=== PATIENT | female | born 1975 | race Caucasian/White ===

== ENCOUNTER → 2018-10-19 13:23 | Outpatient (CLI) | payer OTHER, MEDICAID, SELFPAY ==
[2018-10-19 14:37] LABS: Add Manual Diff / Slide Review NO; Basophils Percent Auto 0.6 % (0-2); Hematocrit 40.7 % (36-46); Hemoglobin 13.8 g/dL (12.0-16.0); Lymphocytes Percent Auto 35.6 % (25-40); Mean Corpuscular HGB Conc 33.9 % (30-36); Mean Corpuscular Hemoglobin 31.7 PG (26-34); Mean Corpuscular Volume 93.4 fL (80-100); Monocytes Percent Auto 8.5 % (3-14); Neutrophils Absolute Auto 3200 /uL (3000-5900); Neutrophils Percent Auto 53.3 % (50-75); Platelet Count 323 X10^3/uL (150-400); Red Blood Cell Count 4.36 X10^6/uL (4.0-5.2); Red Cell Distribution Width 13.8 % (11.6-14.8)
[2018-10-19 15:15] LABS: Alanine Aminotransferase 52 IU/L (9-52); Albumin 4.6 g/dL (3.5-5.0); Albumin Globulin Ratio 1.4 (1.0-2.8); Alkaline Phosphatase 56 U/L (38-126); Aspartate Aminotransferase 50 IU/L (14-36); BUN Creatinine Ratio 16.7 (6-22); Bilirubin Total 0.9 mg/dL (0.2-1.3); Blood Urea Nitrogen 15 mg/dL (7-17); Calcium 9.6 mg/dL (8.4-10.2); Carbon Dioxide 23 mmol/L (22-32); Chloride 106 mmol/L (98-107); Cholesterol 245 mg/dL (140-199); Estimated Glomerular Filt Rate > 60.0 mL/min (>60); Globulin 3.3 g/dL (1.7-4.1); Glucose 75 mg/dL (70-100); HDL Cholesterol 80 mg/dL (40-60); LDL Cholesterol Calculated 149 mg/dL (<100); Sodium 141 mmol/L (137-145); Total Protein 7.9 g/dL (6.3-8.2); Triglycerides 78 mg/dL (35-150)
[2018-10-19 15:18] LABS: HEMOLYSIS 57 (0-50); Potassium 5.5 mmol/L (3.4-5.1)
[2018-10-19 15:45] LABS: TSH w/ Reflex to FT4 0.94 uIU/mL (0.47-4.68)
[2018-10-22 08:59] LABS: HSV 2 IGG AB < 0.90 index (< 0.90)
== END ==
PROVIDERS: PCP Internal Medicine; Visit Provider Internal Medicine
DX: F41.9 Anxiety disorder, unspecified (principal); R39.15 Urgency of urination; Z97.5 Presence of (intrauterine) contraceptive device; N94.9 Unspecified condition associated with female genital organs and menstrual cycle
CPT/HCPCS: 36415; 80053; 80061; 84443; 85025; 86695; 86696

== ENCOUNTER → 2018-11-04 12:04 | Outpatient (CLI) | payer OTHER, MEDICAID, SELFPAY ==
[2018-11-04 12:53] LABS: HEMOLYSIS < 15 (0-50); Iron 62 ug/dL (37-170)
[2018-11-04 12:55] LABS: Alanine Aminotransferase 31 IU/L (9-52); Albumin 4.5 g/dL (3.5-5.0); Albumin Globulin Ratio 1.3 (1.0-2.8); Alkaline Phosphatase 68 U/L (38-126); Aspartate Aminotransferase 35 IU/L (14-36); Bilirubin Total 0.3 mg/dL (0.2-1.3); Bilirubin Unconjugated 0.2 mg/dL (0.0-1.1); Globulin 3.6 g/dL (1.7-4.1); HEMOLYSIS 17 (0-50); Total Protein 8.1 g/dL (6.3-8.2)
[2018-11-04 13:03] LABS: Percent Iron Saturation 19 % (15-50); Total Iron Binding Capacity 331 ug/dL (265-497); Transferrin 266 mg/dL (206-381)
[2018-11-04 16:19] LABS: Hepatitis B Surface Antigen NEGATIVE s/c (NEGATIVE)
[2018-11-04 16:38] LABS: Hep C Virus Ab w/Reflex Quant NEGATIVE s/c (NEGATIVE)
[2018-11-07 21:10] LABS: Ceruloplasmin 36 mg/dL (18-53)
[2018-11-07 22:55] LABS: Albumin 4.1 g/dL (3.8-4.8); Alpha 1 Globulin 0.4 g/dL (0.2-0.3); Alpha 2 Globulin 0.9 g/dL (0.5-0.9); Beta 1 Globulin 0.4 g/dL (0.4-0.6); Gamma Globulin 1.4 g/dL (0.8-1.7); Protein, Total 7.6 g/dL (6.1-8.1)
[2018-11-08 08:25] LABS: ANA Screen NEGATIVE (Negative); DNA Antibody Crithidia IFA NEGATIVE (Negative); Rheumatoid Factor <14 IU/mL; Sjogren Antiboday SS-A <1.0 NEG AI (<1.0 NEGATIVE); Sjogren Antiboday SS-B <1.0 NEG AI (<1.0 NEGATIVE); Sm Antibody <1.0 NEG AI (<1.0 NEGATIVE); Sm/RNP Antibody <1.0 NEG AI (<1.0 NEGATIVE)
[2018-11-08 17:57] LABS: Hepatitis B Core Antibody Nonreactive (Nonreactive)
== END ==
PROVIDERS: PCP Internal Medicine; Visit Provider Internal Medicine
DX: R94.5 Abnormal results of liver function studies (principal)
CPT/HCPCS: 36415; 80076; 82390; 83540; 83550; 84155; 84165; 86038; 86430; 86704; 86803; 87340

== ENCOUNTER → 2018-11-24 12:16 | Outpatient (CLI) | payer OTHER, MEDICAID, SELFPAY ==
--- NOTE | 2018-11-24 | DI.MG.S_ITS ---
BILATERAL DIGITAL SCREENING MAMMOGRAM 3D/2D WITH CAD: 11/24/2018 CLINICAL: Routine screening. Comparison is made to exams dated: 11/06/2016 mammogram, 10/19/2016 mammogram - [facility], 05/17/2017 stereotactic biopsy [facility], and 05/10/2017 [facility] - [facility]. The tissue of both breasts is heterogeneously dense. This may lower the sensitivity of mammography. Current study was also evaluated with a Computer Aided Detection (CAD) system. There is a benign biopsy clip in the left breast. No significant masses, calcifications, or other findings are seen in either breast. There has been no significant interval change. IMPRESSION: NEGATIVE There is no mammographic evidence of malignancy. A 1 year screening mammogram is recommended. This exam was interpreted at Station ID: [id number]. NOTE: For mammograms, a report in lay terms will be sent to the patient. Approximately 15% of breast malignancies will not be visualized mammographically. In the management of a palpable breast mass, a negative mammogram must not discourage biopsy of a clinically suspicious lesion. Electronically Signed By: George jackson/anisa:11/24/2018 22:22:04 copy to: Doug Dennis letter sent: Normal Exam ACR BI-RADS Category 1: Negative 3341F
== END ==
PROVIDERS: Family Provider Internal Medicine; PCP Internal Medicine; Visit Provider Obstetrics & Gynecology
DX: Z12.31 Encounter for screening mammogram for malignant neoplasm of breast (principal)
CPT/HCPCS: 77063; 77067

== ENCOUNTER → 2018-11-29 10:58 | Outpatient (CLI) | payer OTHER, MEDICAID, SELFPAY ==
[2018-12-01 11:08] LABS: RPR Screen Nonreactive (Nonreactive)
[2018-12-01 16:46] LABS: HIV 1 and 2 Antibody NEGATIVE (NEGATIVE)
== END ==
PROVIDERS: Family Provider Internal Medicine; PCP Internal Medicine; Visit Provider Obstetrics & Gynecology
DX: Z20.2 Contact with and (suspected) exposure to infections with a predominantly sexual mode of transmission (principal)
CPT/HCPCS: 36415; 86592; 86703

== ENCOUNTER → 2019-08-26 14:40 | Outpatient (ROUT) | payer OTHER, MEDICAID, SELFPAY ==
[2019-08-26 16:26] LABS: Urine N gonorrhoeae NOT DETECTED
[2019-08-26 17:32] LABS: Urine Chlamydia NOT DETECTED
[2019-08-28 16:25] LABS: Hepatitis B Surface Antigen NEGATIVE s/c (NEGATIVE)
[2019-08-28 16:35] LABS: Hep C Virus Ab w/Reflex Quant NEGATIVE s/c (NEGATIVE)
[2019-08-30 14:16] LABS: RPR Screen Nonreactive (Nonreactive)
[2019-08-31 17:02] LABS: HSV 2 IGG AB < 0.90 index (< 0.90)
[2019-09-02 14:27] LABS: HSV 1 IgM Screen Positive (Negative); HSV 2 IgM Screen Negative (Negative)
[2019-09-04 13:06] LABS: HIV-1/2 confirmation NOT DETECTED
== END ==
PROVIDERS: Family Provider Internal Medicine; PCP Internal Medicine; Visit Provider Obstetrics & Gynecology
DX: Z76.89 Persons encountering health services in other specified circumstances (principal)
CPT/HCPCS: 86592; 86695; 86696; 86803; 87340; 87491; 87535; 87591

== ENCOUNTER → 2019-10-08 11:46 | Outpatient (CLI) | payer OTHER, MEDICAID, SELFPAY ==
[2019-10-08 17:10] LABS: Urine Chlamydia NOT DETECTED; Urine N gonorrhoeae NOT DETECTED
== END ==
PROVIDERS: Family Provider Internal Medicine; PCP Internal Medicine; Visit Provider Nurse Practitioner
DX: N89.8 Other specified noninflammatory disorders of vagina (principal); R30.0 Dysuria
CPT/HCPCS: 87077; 87086; 87186; 87491; 87591

== ENCOUNTER → 2019-10-16 17:24 | Outpatient (CLI) | payer OTHER, MEDICAID, SELFPAY ==
[2019-10-16 18:38] LABS: Hepatitis B Surface Antigen NEGATIVE s/c (NEGATIVE)
[2019-10-16 18:58] LABS: HIV 1 & 2 Ab/Ag 4th Gen Combo NEGATIVE (NEGATIVE); Hep C Virus Ab w/Reflex Quant NEGATIVE s/c (NEGATIVE)
[2019-10-18 13:08] LABS: HSV 1 IgM Screen Negative (Negative); HSV 2 IgM Screen Negative (Negative)
[2019-10-18 20:05] LABS: RPR Screen Nonreactive (Nonreactive)
== END ==
PROVIDERS: Family Provider Obstetrics & Gynecology; PCP Internal Medicine; Visit Provider Nurse Practitioner
DX: Z11.3 Encounter for screening for infections with a predominantly sexual mode of transmission (principal); Z20.2 Contact with and (suspected) exposure to infections with a predominantly sexual mode of transmission
CPT/HCPCS: 36415; 86592; 86695; 86696; 86803; 87340; 87389

== ENCOUNTER → 2019-12-07 12:27 | Outpatient (CLI) | payer OTHER, MEDICAID, SELFPAY ==
--- NOTE | 2019-12-07 | DI.MG.S_ITS ---
BILATERAL DIGITAL SCREENING MAMMOGRAM 3D/2D WITH CAD: 12/07/2019 CLINICAL: Routine screening. Comparison is made to exams dated: 11/24/2018 mammogram, 11/06/2016 mammogram, and 10/19/2016 mammogram - [facility]. The tissue of both breasts is heterogeneously dense. This may lower the sensitivity of mammography. Current study was also evaluated with a Computer Aided Detection (CAD) system. There is a biopsy clip in the left breast. No significant masses, calcifications, or other findings are seen in either breast. There has been no significant interval change. IMPRESSION: NEGATIVE There is no mammographic evidence of malignancy. A 1 year screening mammogram is recommended. This exam was interpreted at Station ID: [id number]. NOTE: For mammograms, a report in lay terms will be sent to the patient. Approximately 15% of breast malignancies will not be visualized mammographically. In the management of a palpable breast mass, a negative mammogram must not discourage biopsy of a clinically suspicious lesion. Electronically Signed By: Wil diaz/anisa:12/07/2019 13:52:32 letter sent: Normal Exam ACR BI-RADS Category 1: Negative 3341F
== END ==
PROVIDERS: Family Provider Obstetrics & Gynecology; PCP Internal Medicine; Visit Provider Internal Medicine
DX: Z12.31 Encounter for screening mammogram for malignant neoplasm of breast (principal)
CPT/HCPCS: 77063; 77067

== ENCOUNTER → 2019-12-27 12:43 | Outpatient (CLI) | payer OTHER, MEDICAID, SELFPAY ==
[2019-12-27 14:28] LABS: Add Manual Diff / Slide Review NO; Basophils Absolute Auto 0 /uL (0-100); Eosinophils Absolute Auto 100 /uL (0-450); Eosinophils Percent Auto 2.5 % (2-4); Hematocrit 38.4 % (36-46); Hemoglobin 13.3 g/dL (12.0-16.0); Lymphocytes Absolute Auto 2100 /uL (1100-4500); Lymphocytes Percent Auto 45.4 % (25-40); Mean Corpuscular HGB Conc 34.6 % (30-36); Mean Corpuscular Hemoglobin 32.2 PG (26-34); Mean Corpuscular Volume 93.2 fL (80-100); Monocytes Absolute Auto 400 /uL (0-900); Neutrophils Absolute Auto 2000 /uL (1500-7000); Neutrophils Percent Auto 42.1 % (50-75); Platelet Count 336 X10^3/uL (150-400); Red Blood Cell Count 4.12 X10^6/uL (4.0-5.2); Red Cell Distribution Width 12.9 % (11.6-14.8); White Blood Cell Count 4.7 X10^3/uL (4.5-11.0)
[2019-12-27 15:53] LABS: HEMOLYSIS < 15 (0-50); Iron 89 ug/dL (37-170)
[2019-12-27 15:57] LABS: Alanine Aminotransferase 22 IU/L (<35); Albumin 4.6 g/dL (3.5-5.0); Albumin Globulin Ratio 1.3 (1.0-2.8); Alkaline Phosphatase 49 U/L (38-126); Aspartate Aminotransferase 32 IU/L (14-36); Bilirubin Total 0.6 mg/dL (0.2-1.3); Blood Urea Nitrogen 10 mg/dL (7-17); Calcium 9.7 mg/dL (8.4-10.2); Carbon Dioxide 25 mmol/L (22-32); Chloride 103 mmol/L (98-107); Estimated Glomerular Filt Rate > 60.0 mL/min (>60); Globulin 3.5 g/dL (1.7-4.1); Glucose 81 mg/dL (70-100); HEMOLYSIS < 15 (0-50); Potassium 4.1 mmol/L (3.4-5.1); Sodium 138 mmol/L (137-145); Total Protein 8.1 g/dL (6.3-8.2)
[2019-12-27 16:04] LABS: Percent Iron Saturation 30 % (15-50); Total Iron Binding Capacity 300 ug/dL (265-497); Transferrin 261 mg/dL (206-381)
[2019-12-27 16:11] LABS: Prolactin 12.5 ng/mL (3.0-18.6)
[2019-12-27 16:27] LABS: TSH w/ Reflex to FT4 0.26 uIU/mL (0.47-4.68)
[2019-12-27 16:59] LABS: Free T4, Direct Thyroxine 1.21 ng/dL (0.78-2.19)
[2019-12-28 10:23] LABS: Cholesterol 230 mg/dL (140-199); HDL Cholesterol 56 mg/dL (40-60); LDL Cholesterol Calculated 161 mg/dL (<100); Triglycerides 64 mg/dL (35-150)
== END ==
PROVIDERS: Family Provider Obstetrics & Gynecology; PCP Internal Medicine; Referring Provider Internal Medicine; Visit Provider Internal Medicine
DX: Z13.1 Encounter for screening for diabetes mellitus (principal); F32.9 Major depressive disorder, single episode, unspecified; F41.9 Anxiety disorder, unspecified; L65.9 Nonscarring hair loss, unspecified; Z13.220 Encounter for screening for lipoid disorders; Z13.6 Encounter for screening for cardiovascular disorders; R53.83 Other fatigue; Z97.5 Presence of (intrauterine) contraceptive device; N64.52 Nipple discharge
CPT/HCPCS: 36415; 80053; 80061; 83540; 83550; 84146; 84439; 84443; 85025

== ENCOUNTER → 2020-07-20 12:17 | Outpatient (CLI) | payer OTHER, MEDICAID, SELFPAY ==
[2020-07-23 18:36] LABS: Inhibin B 165.5 pg/mL (.)
== END ==
PROVIDERS: Family Provider Obstetrics & Gynecology; PCP Internal Medicine; Referring Provider Obstetrics & Gynecology; Visit Provider Obstetrics & Gynecology
DX: Z31.69 Encounter for other general counseling and advice on procreation (principal)
CPT/HCPCS: 36415; 82397; 83001; 83520

== ENCOUNTER → 2020-09-14 15:18 | Outpatient (CLI) | payer OTHER, MEDICAID, SELFPAY ==
[2020-09-16 10:31] LABS: COVID19 Sendout Not Detected (Not Detect)
== END ==
PROVIDERS: Family Provider Obstetrics & Gynecology; PCP Internal Medicine; Visit Provider Student in an Organized Health Care Education/Training Program
DX: Z11.59 Encounter for screening for other viral diseases (principal)
CPT/HCPCS: 87635

== ENCOUNTER → 2020-09-16 11:21 | Outpatient (CLI) | payer OTHER, MEDICAID, SELFPAY ==
[2020-09-17 00:28] LABS: COVID19 Sendout Not Detected (Not Detect)
== END ==
PROVIDERS: Family Provider Obstetrics & Gynecology; PCP Internal Medicine; Visit Provider Physician Assistant
DX: Z11.59 Encounter for screening for other viral diseases (principal)
CPT/HCPCS: 87635

== ENCOUNTER → 2021-02-20 14:38 | Outpatient (CLI) | payer OTHER, MEDICAID, SELFPAY ==
[2021-02-20] MEDS: COVID-19 VACC #1, MRNA(MOD) 100 MCG/0.5 ML VIAL IM (14:43)
== END ==
PROVIDERS: Family Provider Obstetrics & Gynecology; PCP Internal Medicine; Visit Provider Internal Medicine
DX: Z23 Encounter for immunization (principal)
CPT/HCPCS: 0011A; 91301

== ENCOUNTER → 2021-02-25 12:06 | Outpatient (CLI) | payer OTHER, MEDICAID, SELFPAY | PROVIDERS: Family Provider Obstetrics & Gynecology; PCP Internal Medicine; Visit Provider Obstetrics & Gynecology | DX: R30.0 Dysuria (principal) | CPT/HCPCS: 87077; 87086; 87186 ==

== ENCOUNTER → 2021-03-03 15:06 | Outpatient (CLI) | payer OTHER, MEDICAID, SELFPAY | PROVIDERS: Family Provider Obstetrics & Gynecology; PCP Internal Medicine; Visit Provider Obstetrics & Gynecology | DX: R30.0 Dysuria (principal) | CPT/HCPCS: 87086 ==

== ENCOUNTER → 2021-03-04 12:13 | Outpatient (CLI) | payer SELFPAY ==
[2021-03-04 14:34] LABS: Final Volume 0.5 mL; Semen 30 min. Liquification? No
== END ==
PROVIDERS: Family Provider Obstetrics & Gynecology; PCP Internal Medicine; Referring Provider Obstetrics & Gynecology; Visit Provider Obstetrics & Gynecology
DX: N97.0 Female infertility associated with anovulation (principal)
CPT/HCPCS: 58323

== ENCOUNTER → 2021-04-26 09:00 | Outpatient (CLI) | payer OTHER, MEDICAID, SELFPAY ==
[2021-04-26 10:25] LABS: Final Volume 0.5 mL; Semen 30 min. Liquification? No
== END ==
PROVIDERS: Family Provider Obstetrics & Gynecology; PCP Internal Medicine; Referring Provider Obstetrics & Gynecology; Visit Provider Obstetrics & Gynecology
DX: Z31.69 Encounter for other general counseling and advice on procreation (principal)
CPT/HCPCS: 58323

== ENCOUNTER → 2021-05-21 10:37 | Outpatient (CLI) | payer OTHER, MEDICAID, SELFPAY ==
[2021-05-21 11:06] LABS: Final Volume 0.5 mL; Initial Volume 2 mL; Semen 30 min. Liquification? No
== END ==
PROVIDERS: Family Provider Obstetrics & Gynecology; PCP Internal Medicine; Referring Provider Obstetrics & Gynecology; Visit Provider Obstetrics & Gynecology
DX: N97.9 Female infertility, unspecified (principal)
CPT/HCPCS: 58323

== ENCOUNTER → 2021-06-16 13:05 | Outpatient (CLI) | payer OTHER, MEDICAID, SELFPAY ==
[2021-06-16 14:55] LABS: Final Volume 0.5 mL; Initial Volume 2.5 mL; Semen 30 min. Liquification? No
== END ==
PROVIDERS: Family Provider Obstetrics & Gynecology; PCP Internal Medicine; Referring Provider Obstetrics & Gynecology; Visit Provider Obstetrics & Gynecology
DX: N97.0 Female infertility associated with anovulation (principal)
CPT/HCPCS: 58323

== ENCOUNTER → 2021-06-26 15:02 | Outpatient (CLI) | payer OTHER, MEDICAID, SELFPAY ==
[2021-06-26 16:30] LABS: Add Manual Diff / Slide Review NO; Basophils Absolute Auto 100 /uL (0-100); Basophils Percent Auto 0.8 % (0-2); Eosinophils Absolute Auto 200 /uL (0-450); Eosinophils Percent Auto 2.2 % (2-4); Hematocrit 40.9 % (36-46); Hemoglobin 14.1 g/dL (12.0-16.0); Lymphocytes Absolute Auto 3200 /uL (1100-4500); Lymphocytes Percent Auto 41.7 % (25-40); Mean Corpuscular HGB Conc 34.4 % (30-36); Mean Corpuscular Hemoglobin 31.8 PG (26-34); Mean Corpuscular Volume 92.4 fL (80-100); Monocytes Absolute Auto 600 /uL (0-900); Monocytes Percent Auto 7.6 % (3-14); Neutrophils Absolute Auto 3600 /uL (1500-7000); Neutrophils Percent Auto 47.7 % (50-75); Platelet Count 307 X10^3/uL (150-400); Red Blood Cell Count 4.43 X10^6/uL (4.0-5.2); Red Cell Distribution Width 12.9 % (11.6-14.8); White Blood Cell Count 7.6 X10^3/uL (4.5-11.0)
[2021-06-26 16:39] LABS: Fibrinogen 354 mg/dL (211-428); Prothrombin Time 11.4 SECONDS (10.1-12.7)
[2021-06-26 16:44] LABS: Alanine Aminotransferase 18 IU/L (<35); Albumin 4.5 g/dL (3.5-5.0); Albumin Globulin Ratio 1.2 (1.0-2.8); Alkaline Phosphatase 52 U/L (38-126); Aspartate Aminotransferase 20 IU/L (14-36); BUN Creatinine Ratio 15.1 (6-22); Bilirubin Total 0.6 mg/dL (0.2-1.3); Blood Urea Nitrogen 16 mg/dL (7-17); Calcium 9.8 mg/dL (8.4-10.2); Carbon Dioxide 24 mmol/L (22-32); Chloride 105 mmol/L (98-107); Estimated Glomerular Filt Rate 55.8 mL/min (>60); Globulin 3.7 g/dL (1.7-4.1); Glucose 77 mg/dL (70-100); HEMOLYSIS < 15 (0-50); Potassium 4.1 mmol/L (3.4-5.1); Sodium 138 mmol/L (137-145); Total Protein 8.2 g/dL (6.3-8.2)
[2021-06-26 17:17] LABS: Urine N gonorrhoeae NOT DETECTED
[2021-06-26 17:34] LABS: HIV 1 & 2 Ab/Ag 4th Gen Combo NEGATIVE (NEGATIVE); Hep C Virus Ab w/Reflex Quant NEGATIVE s/c (NEGATIVE); Hepatitis B Surface Antigen NEGATIVE s/c (NEGATIVE)
[2021-06-26 17:44] LABS: Urine Chlamydia NOT DETECTED
[2021-06-27 09:18] LABS: RPR Screen Non Reactive (Non Reactive)
[2021-06-29 10:07] LABS: PT 1:1 NP 10.4 sec (9.1-12.0)
[2021-06-30 00:36] LABS: Anti Mullerian Hormone 0.887 ng/mL (.)
== END ==
PROVIDERS: Family Provider Obstetrics & Gynecology; PCP Internal Medicine; Referring Provider Obstetrics & Gynecology; Visit Provider Obstetrics & Gynecology
DX: Z31.69 Encounter for other general counseling and advice on procreation (principal)
CPT/HCPCS: 36415; 80053; 80055; 82397; 85384; 85610; 85611; 85730; 85732; 86803; 87389; 87491; 87591

== ENCOUNTER → 2021-08-23 14:45 | Outpatient (CLI) | payer OTHER, MEDICAID, SELFPAY ==
[2021-08-23 16:17] LABS: COVID19 -Nasal RAPID Negative (Negative)
== END ==
PROVIDERS: Family Provider Obstetrics & Gynecology; PCP Internal Medicine; Visit Provider Physician Assistant
DX: Z20.822 Contact with and (suspected) exposure to COVID-19 (principal); R05.9 Cough, unspecified; R09.81 Nasal congestion; R09.89 Other specified symptoms and signs involving the circulatory and respiratory systems; R53.83 Other fatigue
CPT/HCPCS: 87635

== ENCOUNTER → 2021-10-02 13:32 | Outpatient (CLI) | payer OTHER, MEDICAID, SELFPAY ==
--- NOTE | 2021-10-02 13:33 | DI.US.S_ITS ---
PROCEDURE: US PELVIC COMPLETE INDICATIONS: FOLLICLE CHECK TECHNIQUE: Real-time scanning was performed of the pelvic organs, with image documentation. Additional endovaginal scanning was necessary due to incomplete visualization of the adnexal and endometrial structures by transabdominal scanning. COMPARISON: [facility], , US PELVIC COMPLETE, 05/20/2021, 12:15. [facility], , US PELVIC COMPLETE, 06/12/2021, 16:43. FINDINGS: Uterus: Uterus is anteverted and normal in size at 7.6 x 4.9 x 4.1 cm. A cluster of nabothian cysts is present in the cervix. The myometrial echotexture is fairly homogeneous. The endometrium measures 11 mm in combined thickness. Ovaries: The right ovary measures 3.6 x 1.8 x 1.9 cm for a volume of 6.4 cc. The left ovary measures 3.3 by 3.0 x 1.5 cm for a volume of 7.7 cc. Thick-walled peripherally vascular cyst within the right ovary measures 2.0 cm. Trace internal echoes are present. No paraovarian fluid. The left ovary contains six or seven subcentimeter follicles and there is trace paraovarian fluid present. Other: No pathologic free abdominal or pelvic fluid. IMPRESSION: 1. Right corpus luteum and small left subcentimeter follicles as described. 2. Normal uterus. Dictated by: Chloé Zaman M.D. on 10/02/2021 at 15:50 Approved by: Chloé Zaman M.D. on 10/02/2021 at 15:55
== END ==
PROVIDERS: Family Provider Obstetrics & Gynecology; PCP Internal Medicine; Referring Provider Obstetrics & Gynecology; Visit Provider Obstetrics & Gynecology
DX: N97.0 Female infertility associated with anovulation (principal); N83.11 Corpus luteum cyst of right ovary
CPT/HCPCS: 76830; 76856

== ENCOUNTER → 2021-11-05 16:52 | Outpatient (CLI) | payer OTHER, MEDICAID, SELFPAY ==
[2021-11-05 19:01] LABS: Prolactin 19.8 ng/mL (3.0-18.6)
[2021-11-05 19:12] LABS: Thyroid Stimulating Hormone 1.75 uIU/mL (0.47-4.68)
== END ==
PROVIDERS: Family Provider Obstetrics & Gynecology; PCP Internal Medicine; Referring Provider Obstetrics & Gynecology; Visit Provider Obstetrics & Gynecology
DX: N97.0 Female infertility associated with anovulation (principal)
CPT/HCPCS: 36415; 84146; 84443

== ENCOUNTER → 2021-11-28 17:23 | Outpatient (CLI) | payer OTHER, MEDICAID, SELFPAY ==
[2021-11-28 18:38] LABS: COVID19 -Nasal RAPID Negative (Negative)
== END ==
PROVIDERS: Family Provider Obstetrics & Gynecology; PCP Internal Medicine; Visit Provider Nurse Practitioner Critical Care Medicine
DX: Z20.822 Contact with and (suspected) exposure to COVID-19 (principal)
CPT/HCPCS: 87635

== ENCOUNTER → 2021-12-25 13:27 | Outpatient (CLI) | payer OTHER, MEDICAID, SELFPAY ==
[2021-12-25 18:32] LABS: Estradiol, Total 1070.5 pg/mL
== END ==
PROVIDERS: Family Provider Obstetrics & Gynecology; PCP Internal Medicine; Referring Provider Specialist; Visit Provider Specialist
DX: N97.8 Female infertility of other origin (principal)
CPT/HCPCS: 36415; 82670; 84144

== ENCOUNTER → 2022-01-01 14:02 | Outpatient (CLI) | payer OTHER, MEDICAID, SELFPAY ==
[2022-01-01 14:56] LABS: HCG Quantitative /Beta subunit < 2.4 mIU/mL
== END ==
PROVIDERS: Family Provider Obstetrics & Gynecology; PCP Internal Medicine; Referring Provider Specialist; Visit Provider Specialist
DX: N97.8 Female infertility of other origin (principal)
CPT/HCPCS: 36415; 84702

== ENCOUNTER → 2022-01-19 13:17 | Outpatient (CLI) | payer OTHER, MEDICAID, SELFPAY ==
[2022-01-19 16:58] LABS: Hepatitis B Surface Antigen NEGATIVE s/c (NEGATIVE); Rubella Antibody IgG 87.6 IU/mL (>15)
[2022-01-19 17:14] LABS: HIV 1 & 2 Ab/Ag 4th Gen Combo NEGATIVE (NEGATIVE); Hep C Virus Ab w/Reflex Quant NEGATIVE s/c (NEGATIVE)
[2022-01-20 06:22] LABS: RPR Screen Non Reactive (Non Reactive)
[2022-01-20 11:20] LABS: Varicella IgG Antibody 2467 index (Immune >165)
== END ==
PROVIDERS: Family Provider Obstetrics & Gynecology; PCP Internal Medicine; Referring Provider Internal Medicine; Visit Provider Internal Medicine
DX: N97.8 Female infertility of other origin (principal)
CPT/HCPCS: 36415; 86592; 86644; 86762; 86787; 86790; 86803; 87340; 87389

== ENCOUNTER → 2022-02-06 15:04 | Outpatient (CLI) | payer OTHER, MEDICAID, SELFPAY ==
[2022-02-06 16:50] LABS: HCG Quantitative /Beta subunit < 2.4 mIU/mL
== END ==
PROVIDERS: Family Provider Obstetrics & Gynecology; PCP Internal Medicine; Visit Provider Internal Medicine
DX: Z32.00 Encounter for pregnancy test, result unknown (principal)
CPT/HCPCS: 36415; 84702

== ENCOUNTER → 2022-10-21 19:14 | Outpatient (CLI) | payer OTHER, MEDICAID, SELFPAY ==
[2022-10-21 20:26] LABS: Influenza A - CEPHEID Flu A POSITIVE (NEGATIVE); Influenza B - CEPHEID Flu B NEGATIVE (NEGATIVE); Respiratory Syncytial Virus Negative (Negative)
[2022-10-21 20:28] LABS: COVID-19 CEPHEID 4-PLEX PCR Negative (Negative)
== END ==
PROVIDERS: Family Provider Obstetrics & Gynecology; PCP Internal Medicine; Visit Provider Nurse Practitioner Family
DX: R05.9 Cough, unspecified (principal)
CPT/HCPCS: 0241U

== ENCOUNTER → 2022-12-11 12:12 | Outpatient (CLI) | payer OTHER, MEDICAID, SELFPAY ==
[2022-12-11 14:34] LABS: COVID19 -Nasal RAPID Negative (Negative)
== END ==
PROVIDERS: Family Provider Obstetrics & Gynecology; PCP Internal Medicine; Referring Provider Internal Medicine; Visit Provider Internal Medicine
DX: Z20.822 Contact with and (suspected) exposure to COVID-19 (principal)
CPT/HCPCS: 87635; C9803

== ENCOUNTER → 2022-12-11 12:14 | Outpatient (CLI) | payer OTHER, MEDICAID, SELFPAY ==
--- NOTE | 2022-12-15 11:20 | PM.PFT.1 ---
Pulmonary Function Test Referral & Results Date Patient Seen: 12/11/22 Requesting provider: Doug Dennis Results: The spirometry demonstrates an FVC of 3.59 L which is 103% of predicted. The FEV1 was measured at 3.0 L which is 108% of predicted. The FEV1/FVC ratio was 84 which is 103% of predicted. Following the administration of bronchodilator there was a 20% improvement in FEF 25-75%. Lung volumes show an SVC of 3.44 L which is 107% of predicted. The diffusing capacity was measured at 23.38 which is 102% of predicted. The maximum voluntary ventilation was normal Interpretation: This study demonstrates normal pulmonary function
== END ==
PROVIDERS: Family Provider Obstetrics & Gynecology; PCP Internal Medicine; Referring Provider Internal Medicine; Visit Provider Internal Medicine
DX: R06.02 Shortness of breath (principal); Z20.822 Contact with and (suspected) exposure to COVID-19
CPT/HCPCS: 87635; 94060; 94726; 94729; C9803

== ENCOUNTER → 2022-12-29 17:18 | Outpatient (CLI) | payer OTHER, MEDICAID, SELFPAY ==
[2022-12-29 17:54] LABS: Add Manual Diff / Slide Review NO; Basophils Absolute Auto 100 /uL (0-100); Basophils Percent Auto 0.9 % (0-2); Eosinophils Absolute Auto 200 /uL (0-450); Eosinophils Percent Auto 3.6 % (2-4); Hematocrit 39.6 % (36-46); Hemoglobin 13.3 g/dL (12.0-16.0); Lymphocytes Absolute Auto 2500 /uL (1100-4500); Lymphocytes Percent Auto 38.7 % (25-40); Mean Corpuscular HGB Conc 33.7 % (30-36); Mean Corpuscular Hemoglobin 30.9 PG (26-34); Mean Corpuscular Volume 91.6 fL (80-100); Monocytes Absolute Auto 600 /uL (0-900); Monocytes Percent Auto 9.6 % (3-14); Neutrophils Absolute Auto 3100 /uL (1500-7000); Neutrophils Percent Auto 47.2 % (50-75); Platelet Count 276 X10^3/uL (150-400); Red Blood Cell Count 4.32 X10^6/uL (4.0-5.2); Red Cell Distribution Width 13.9 % (11.6-14.8); White Blood Cell Count 6.5 X10^3/uL (4.5-11.0)
[2022-12-29 18:07] LABS: HEMOLYSIS < 15 (0-50); Iron 101 ug/dL (37-170)
[2022-12-29 18:09] LABS: Alanine Aminotransferase 25 IU/L (<35); Albumin 4.3 g/dL (3.5-5.0); Albumin Globulin Ratio 1.2 (1.0-2.8); Alkaline Phosphatase 61 U/L (38-126); Aspartate Aminotransferase 21 IU/L (14-36); BUN Creatinine Ratio 13.3 (6-22); Bilirubin Total 0.4 mg/dL (0.2-1.3); Blood Urea Nitrogen 12 mg/dL (7-17); Carbon Dioxide 23 mmol/L (22-32); Chloride 104 mmol/L (98-107); Cholesterol 262 mg/dL (140-199); Estimated Glomerular Filt Rate > 60 mL/min (>60); Globulin 3.5 g/dL (1.7-4.1); Glucose 99 mg/dL (70-100); HDL Cholesterol 58 mg/dL (40-60); HEMOLYSIS < 15 (0-50); LDL Cholesterol Calculated 179 mg/dL (<100); Potassium 3.8 mmol/L (3.4-5.1); Sodium 139 mmol/L (137-145); Total Protein 7.8 g/dL (6.3-8.2); Triglycerides 125 mg/dL (35-150)
[2022-12-29 18:19] LABS: Percent Iron Saturation 31 % (15-50); Total Iron Binding Capacity 322 ug/dL (265-497); Transferrin 253 mg/dL (206-381)
== END ==
PROVIDERS: Family Provider Obstetrics & Gynecology; PCP Internal Medicine; Referring Provider Internal Medicine; Visit Provider Internal Medicine
DX: E61.1 Iron deficiency (principal); F33.1 Major depressive disorder, recurrent, moderate; F41.9 Anxiety disorder, unspecified; Z13.1 Encounter for screening for diabetes mellitus; Z13.220 Encounter for screening for lipoid disorders; Z13.6 Encounter for screening for cardiovascular disorders
CPT/HCPCS: 36415; 80053; 80061; 83540; 83550; 85025

== ENCOUNTER → 2023-02-18 13:15 | Outpatient (CLI) | payer OTHER, MEDICAID, SELFPAY ==
[2023-02-22 17:00] LABS: Fecal Immunochemical Test Negative (Negative)
== END ==
PROVIDERS: Family Provider Obstetrics & Gynecology; PCP Internal Medicine; Referring Provider Internal Medicine; Visit Provider Internal Medicine
DX: Z12.11 Encounter for screening for malignant neoplasm of colon (principal)
CPT/HCPCS: 82274

== ENCOUNTER → 2023-04-21 16:30 | Outpatient (CLI) | payer OTHER, MEDICAID, SELFPAY ==
--- NOTE | 2023-04-21 16:33 | DI.MG.S_ITS ---
BILATERAL DIGITAL SCREENING MAMMOGRAM 3D/2D WITH CAD: 04/21/2023 CLINICAL: Routine screening. Comparison is made to exams dated: 12/07/2019 mammogram and 11/24/2018 mammogram - [facility]. Both breasts are heterogeneously dense, which may obscure small masses (category c / 51-75% glandular tissue). Current study was also evaluated with a Computer Aided Detection (CAD) system. There is a biopsy clip in the left breast. No significant masses, calcifications, or other findings are seen in either breast. There has been no significant interval change. IMPRESSION: NEGATIVE There is no mammographic evidence of malignancy. A 1 year screening mammogram is recommended. Based on Tyrer-Cuzick model (a risk assessment model), the patient's lifetime risk is 25.9% and her 10 year risk is 6.0%. If a patient has an elevated risk, a more comprehensive evaluation should be considered and/or a referral to a genetic counselor. The [employer], [employer], and NCCN Guidelines advise the consideration of Breast MRI as an adjunct to screening mammography in patients whose Lifetime risk to develop breast cancer is 20% or higher. This exam was interpreted at Station ID: [id number]. NOTE: For mammograms, a report in lay terms will be sent to the patient. Approximately 15% of breast malignancies will not be visualized mammographically. In the management of a palpable breast mass, a negative mammogram must not discourage biopsy of a clinically suspicious lesion. Electronically Signed By: Wil diaz/anisa:04/22/2023 08:46:04 copy to: Brenda Sullivan letter sent: Normal Exam ACR BI-RADS Category 1: Negative 3341F
== END ==
PROVIDERS: Family Provider Obstetrics & Gynecology; PCP Internal Medicine; Referring Provider Internal Medicine; Visit Provider Internal Medicine
DX: Z12.31 Encounter for screening mammogram for malignant neoplasm of breast (principal)
CPT/HCPCS: 77063; 77067

== ENCOUNTER → 2024-04-07 16:04 | Outpatient (CLI) | payer OTHER, MEDICAID, SELFPAY ==
[2024-04-07 17:59] LABS: Progesterone, Total 5.39 ng/mL
[2024-04-11 07:36] LABS: Dehydroepiandrosterone Sulfate 78.8 ug/dL (41.2-243.7)
[2024-04-15 09:09] LABS: Anti Mullerian Hormone 0.104 ng/mL (.)
== END ==
PROVIDERS: Family Provider Obstetrics & Gynecology; PCP Internal Medicine; Referring Provider Obstetrics & Gynecology; Visit Provider Obstetrics & Gynecology
DX: N95.1 Menopausal and female climacteric states (principal)
CPT/HCPCS: 36415; 82397; 82627; 84144